=== PATIENT | female | born 1965 | race Caucasian/White ===

== ENCOUNTER 2016-08-13 16:04 | Inpatient (IN) | payer BC ==
--- NOTE | ~2016-08-13 | DS ---
Discharge Summary [facility] [address] [place]. [address] NAME: DEVON LAWSON : 67 STATUS : DIS IN PAT#: [id number] AGE: 51 ADM/REG DATE : 08/13/16 MR#: [id number] REPORT SERV DATE: 09/02/16 DICTATED BY: QUINN ROBBINS DATE: 09/01/16 REPORT STATUS : Draft TRANSCRIBED BY: PAPITO DATE: 09/01/16 Data Collection from hospitalization ADDENDUM CONTENT ARCHITECT: Nirmal Persaud M.D. HOSPITAL COURSE: The patient was seen by Dr. Oneal Guajardo. His impression included febrile illness and sepsis in a renal transplant patient. Her symptoms thus far were most consistent with a gastrointestinal etiology, possibly even bacterial gastroenteritis looking at her white count, procalcitonin, etc. He did not see any other likely sources outside of the gastrointestinal tract. She did have a CT scan that showed some scattered air-fluid levels, of uncertain etiology in her small bowel, but otherwise was unremarkable with no abnormality seen in the transplanted kidney or in the gallbladder. She does have some chronic-appearing cystic lesions in her liver that were felt to be unrelated to this. She was already better on empiric therapy and hydration. Vancomycin and Zosyn were continued for now. We would follow up the blood and stool cultures and make antibiotic changes as indicated. The following day, she seemed to felt better, she had less nausea. The creatinine and calcium levels were decreasing. She was growing E. coli in her blood cultures. Vancomycin had been stopped. Stool cards were provided. IV fluids were decreased. On the , she said she was feeling much better. Stool cultures were negative. She continued to have diarrhea. She remained afebrile. Zosyn was continued for now. She still had some abdominal pain. Creatinine level was 1.03. Electrolyte protocol was in place. CT scan of the abdomen and pelvis without contrast was again performed. On the , she had persistent diarrhea. Her abdominal pain was somewhat better. Creatinine had decreased to 0.89. Antibiotics were continued. On 08/17/2016, she remained afebrile. Her stool cultures were negative. Her CT scan had been negative. She was placed on Cipro. Creatinine was stable at 0.72. She was seen in consultation. She was seen by Dr. Nirmal Sadowitz. The patient has a history of irritable bowel syndrome. Zosyn had been stopped. The patient was on Cipro. We placed the patient on Xifaxan and a probiotic. The patient has had no bright red blood per rectum. On the , she was feeling better. She was afebrile. Her lungs were clear. She had no new complaints. Her diarrhea was improving. Amlodipine was being given. Electrolyte protocol continued. Solu-Cortef was being weaned. CellCept was stopped. Nystatin swish and swallow was being given. Levsin was started as well. On 08/20/2016, she still had some diarrhea. She had no edema. Over the next couple of days, she had no complaints. Her diarrhea was much improved. CellCept was added back. Discharge planning was performed. Stools were more formed and less frequent. On 08/22/2016, she was alert and cooperative. Loose stools were much improved. was added to her regimen. Levsin, probiotic, and Xifaxan were continued. Discharge instructions were given. Due to her improved and stable condition, she was discharged home with the above-stated instructions. Information collected by: Leah Murrell I submit the above information as my discharge summary. Discharge Summary [address] [address] NAME: DEVON LAWSON : 67 STATUS : DIS IN PAT#: [id number] AGE: 51 ADM/REG DATE : 08/13/16 MR#: [id number] REPORT SERV DATE: 09/02/16 DICTATED BY: QUINN ROBBINS DATE: 09/01/16 REPORT STATUS : Draft TRANSCRIBED BY: PAPITO DATE: 09/01/16 TG/PAPITO Quinn Robbins M.D. / [id number] CC: Jose Lancaster M.D. Richard Sadowitz, M.D.
--- NOTE | ~2016-08-13 | CN ---
Consultation Report [facility] [address] [place]. [address] NAME: DEVON LAWSON : 67 STATUS : ADM IN PAT#: [id number] AGE: 50 ADM/REG DATE : 08/13/16 MR#: [id number] REPORT SERV DATE: 08/14/16 DICTATED BY: NICOLE HINOJOSA DATE: 08/14/16 REPORT STATUS : Draft TRANSCRIBED BY: MODEfren DATE: 08/14/16 INFECTIOUS DISEASE CONSULT DATE OF CONSULTATION: REASON FOR REFERRAL: Evaluation and treatment of febrile illness. HISTORY OF PRESENT ILLNESS: The patient is a 50-year-old female with history of hypertension, diabetes mellitus, and endometriosis. She was diagnosed as a child with Wilms tumor and underwent a right nephrectomy and also radiation to the left kidney, and with time, developed worsening renal function to the point of end-stage renal disease as an adult. She was briefly on hemodialysis and then underwent a renal transplant in 04/2014 at [place] from a unrelated donor. She has done well with her transplant without any rejection problems. Since then, she is maintained on low-dose prednisone along with CellCept and Prograf. She was doing well until five days ago when she began to feel ill with general malaise last Thursday evening that grew worse the next morning and was accompanied beginning in the morning with nausea, vomiting, and then later in the day with diarrhea. She was seen in the afternoon at [facility] and was febrile there. It was noted that she had some slight redness around the site of a skin biopsy on her back and so she was started on clindamycin for possible infection with that. She said she took it despite her nausea, but she grew worse and worse. Temperatures were going to 102 to 103. She continued to have intermittent diarrhea, intermittent headaches, though not severe, and she does have a chronic history of headaches. She had no real significant worsening cough. No sore throat. Only mild abdominal pain. No dysuria. No joint pain. No skin lesions or rashes. No lymphadenopathy. She is a [place] of [place] area, has lived in [place] all of her life. She has not traveled outside this area recently and not outside the [place] ever. 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 She lives in [place]. She is single. She lives with her adult child. No small children in the household. She does have four dogs, none of whom are sick and only one is an inside dog. There is an older child in the household with a bearded dragon, but she never has any contact whatsoever with that reptile. She has not been around any other animals. No farm animals. She has not eaten anything that she suspected as being not good or spoiled. She does eat out occasionally including daily sandwiches from restaurants. She has not consumed any unpasteurized dairy products. No other unusual environmental exposures. PAST MEDICAL HISTORY: Otherwise unremarkable. MEDICATIONS: She was started last evening on vancomycin and Zosyn. ALLERGIES: SHE REPORTS AN ALLERGY TO LEVOFLOXACIN AND DOXYCYCLINE. SOCIAL HISTORY: She is single, nonsmoker. No history of alcohol or substance abuse. Work as previously mentioned. Consultation Report [address] [place]. [address] NAME: DEVON LAWSON : 67 STATUS : ADM IN [facility]#: [id number] AGE: 50 ADM/REG DATE : 08/13/16 MR#: [id number] REPORT SERV DATE: 08/14/16 DICTATED BY: NICOLE HINOJOSA DATE: 08/14/16 REPORT STATUS : Draft TRANSCRIBED BY: PAPITO DATE: 08/14/16 FAMILY HISTORY: Noncontributory. PHYSICAL EXAMINATION: GENERAL: This morning, a nontoxic adult female, in no acute distress. She is alert and oriented x3. VITAL SIGNS: Her temperature when she presented yesterday was 98.9; it did go up to 102.1 last evening, it is 97.9 this morning with a pulse of 96, respirations 22, blood pressure 122/63, weight 56 kg. HEENT: Sclerae are clear. There are no oropharyngeal lesions. NECK: Supple without lymphadenopathy or meningeal signs. LUNGS: Clear to auscultation. HEART: Regular rate and rhythm without murmur or gallop. ABDOMEN: Soft. There is some slight tenderness in the mid abdomen without guarding or rebound. Positive bowel sounds are heard and there are no masses or hepatosplenomegaly. Incisions from her transplant are all well healed. EXTREMITIES: Without clubbing, cyanosis, or edema. No swollen, red, or hot joints. No skin lesions or rashes are noted other than where she had the biopsy on her back that appears to be healing and does not appear to be infected. LABORATORIES AT PRESENTATION: Her white blood cell count was 11.5; this morning it is 7.5 with a hematocrit of 25.9, and platelets of 135. 75 segs, 12% bands at presentation, 83 segs and 7% bands this morning. Her BUN and creatinine were 35 and 1.12 at presentation; it is 31 and 0.97 this morning; her baseline, she is at 0.6 to 0.7. Procalcitonin was 7.16 at presentation. Liver function tests within normal limits with the exception of an albumin of 2.3 and an alkaline phosphatase of 154. Her urinalysis was unremarkable. Blood cultures so far are negative. A Clostridium difficile assay was done on her stool and that was negative. Stool cultures pending. IMPRESSION: Febrile illness and sepsis in a renal transplant patient. Her symptoms thus far are most consistent with a gastrointestinal etiology, possibly even a bacterial gastroenteritis, looking at her white count, procalcitonin, etc. I do not see any other likely sources outside of the gastrointestinal tract. She did have a CT scan that showed some scattered air-fluid levels of uncertain etiology in her small bowel, but otherwise was unremarkable with no abnormalities seen in the transplanted kidney or in the gallbladder. She does have some chronic-appearing cystic lesions in her liver that I think are unrelated to this. She is already better on empiric therapy and hydration. RECOMMENDATIONS: 1. Continue the vancomycin and Zosyn for now. 2. We will follow up the stool and blood cultures later today and tomorrow and change antibiotics as indicated if positive results are found there. 3. Finally, I will follow the patient with you. I appreciate very much your consulting on this patient. Consultation Report [facility] [address] [place]. [address] NAME: DEVON LAWSON : 67 STATUS : ADM IN PAT#: [id number] AGE: 50 ADM/REG DATE : 08/13/16 MR#: [id number] REPORT SERV DATE: 08/14/16 DICTATED BY: NICOLE HINOJOSA DATE: 08/14/16 REPORT STATUS : Draft TRANSCRIBED BY: PAPITO DATE: 08/14/16 ALY Nicole Hinojosa M.D. / [id number] CC: Ferny Tapia M.D.
--- NOTE | ~2016-08-13 | HP ---
History And Physical [facility] [id number] [place]. [address] NAME: DEVON ALBRECHT : 67 STATUS : ADM IN [facility]#: [id number] AGE: 50 ADM/REG DATE : 08/13/16 MR#: [id number] REPORT SERV DATE: 08/14/16 DICTATED BY: QUINN ROBBINS DATE: 08/13/16 REPORT STATUS : Draft TRANSCRIBED BY: MODL DATE: 08/13/16 DATE OF ADMISSION: 08/13/2016 INDICATION FOR HOSPITALIZATION: Nausea, vomiting, diarrhea, and fever. HISTORY OF PRESENT ILLNESS: Ms. Albrecht is a 50-year-old female who was followed for donor renal transplant, which was performed at [place] in 04/2014. She received a transplant across [facility]BO blood types with high A2 kidney, six-antigen match, 0% PRAs, CMV negative donor, and CMV positive recipient. There have been no episodes of rejection. Prior to transplant, she received plasmapheresis, Rituxan, and IVIG. Her baseline creatinine has ranged between 0.5 and 0.9, and she has been tolerating prednisone, CellCept, and Prograf as an immunosuppressant regimen. The patient indicates that she recently had a skin biopsy on her back, and there was some redness at the site. She developed fever at home with maximal temperature of 102.3 degrees associated with chills, nausea, vomiting, and diarrhea. She was intermittently able to keep down fluids and states that she took Phenergan to help keep down medications. She has not eaten in five days. She presented with the nausea, vomiting, abdominal pain, and fever. Her lactic acid was 0.7. WBC was 11.5, hemoglobin 10.8, and platelet count 181. Creatinine was 1.12. Sodium 132, bicarb 16, glucose 134, calcium 12.1, procalcitonin was 7.16. She had a urinalysis that revealed 1 wbc, hyaline cast, rare bacteria and leukocyte esterase negative. She indicates on the Thursday prior to this admission, she was evaluated at the emergency room at [facility], no labs were done. They evaluated her back lesion and placed her on Cleocin. She noted diarrhea prior to initiation of Cleocin. She denies any melanotic stools. 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 SOCIAL HISTORY: The patient is single and has an adult son. 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 She does not smoke, drink, or use illicit drugs. FAMILY HISTORY: Brother with lymphoma. Father with kidney stones. Mother with renal cyst and hypertension. No history of end-stage renal disease. Adult son in good health. Marital status, . HOME MEDICATIONS: Protonix, Ambien, Zofran, CellCept, magnesium oxide, prednisone, Tradjenta, pravastatin, Flonase nasal spray, Sensipar, Zyrtec, Lantus insulin, Flexeril, Prograf, Phenergan, Fioricet, and PhosLo. ALLERGIES: NIACIN, DOXYCYCLINE, LEVOFLOXACIN, DILAUDID, REGLAN. History And Physical [address] [address] NAME: DEVON ALBRECHT : 67 STATUS : ADM IN [facility]#: [id number] AGE: 50 ADM/REG DATE : 08/13/16 MR#: [id number] REPORT SERV DATE: 08/14/16 DICTATED BY: QUINN ROBBINS DATE: 08/13/16 REPORT STATUS : Draft TRANSCRIBED BY: PAPITO DATE: 08/13/16 REVIEW OF SYSTEMS: CONSTITUTIONAL: Positive for chills, weakness, fever. HEENT: No sinus drainage. No pharyngitis. No change in visual acuity. PULMONARY: No significant shortness of breath. Minimal cough, nonproductive. CARDIAC: No chest pain. No lower extremity edema. GI: Positive for abdominal pain, nausea, vomiting, diarrhea, decreased appetite. : No dysuria or gross hematuria. MUSCULOSKELETAL: Chronic back pain. INTEGUMENT: No rash or itching. One lesion on back with minimal erythema following biopsy. HEMATOLOGIC: Easy bleeding. IMMUNOLOGIC: Environmental allergies. PSYCH: Normal affect. No hallucinations. PHYSICAL EXAMINATION: VITAL SIGNS: Temp 98.9, respiratory rate 16, pulse 116, blood pressure 162/78. GENERAL: Pleasant female. Conversing appropriately. Breathing nonlabored. HEENT: Eyes, no scleral icterus. Pupils are equal and reactive to light. Extraocular movement intact. Nares patent. No discharge. Throat, no injection. Mucous membranes moist. NECK: No thyromegaly, masses, or bruits. CHEST/LUNGS: Few late crackles at bases. No consolidation. No wheezing. No dullness to percussion. CARDIAC: Tachycardia. No gallop, rub, or murmur. ABDOMEN: Mild tenderness. No guarding. No hepatosplenomegaly. No masses excluding renal allograft which is nontender. BREASTS, PELVIC, RECTAL: Exam not performed. EXTREMITIES: No edema. No calf tenderness. DERMIS: No rash. The skin lesion on her back is minimally inflamed. MUSCULOSKELETAL: No deformity. No joint tenderness. IMPRESSION: 1. Nausea, vomiting, diarrhea, possibly gastroparesis and/or colitis. 2. donor renal transplant in 04/2014 at [place] with six-antigen match kidney. 3. Possible sepsis with probable colitis as source. 4. Hypercalcemia. 5. Acute kidney injury. 6. Hypertension. 7. History of type 2 diabetes mellitus. 8. Diabetic gastroparesis. 9. Anemia. 10.Probable volume depletion. 11.Herniated nucleus pulposus. PLAN: 1. Labs. 2. Cultures. History And Physical [address] [address] NAME: DEVON ALBRECHT : 67 STATUS : ADM IN [facility]#: [id number] AGE: 50 ADM/REG DATE : 08/13/16 MR#: [id number] REPORT SERV DATE: 08/14/16 DICTATED BY: QUINN ROBBINS DATE: 08/13/16 REPORT STATUS : Draft TRANSCRIBED BY: MODL DATE: 08/13/[address] scan of abdomen without contrast. 4. Vancomycin and Zosyn after cultures. 5. Infectious Disease consult. 6. IV fluids. CG/BRIANNAL Quinn Robbins M.D. / [id number] CC: Quinn Robbins M.D.
--- NOTE | ~2016-08-13 | DS ---
Discharge Summary [facility] [address] [place]. [address] NAME: DEVON LAWSON : 67 STATUS : DIS IN PAT#: [id number] AGE: 51 ADM/REG DATE : 08/13/16 MR#: [id number] REPORT SERV DATE: 09/02/16 DICTATED BY: QUINN ROBBINS DATE: 09/01/16 REPORT STATUS : Draft TRANSCRIBED BY: PAPITO DATE: 09/01/16 Data Collection from hospitalization DISCHARGE DIAGNOSES: 1. E. coli sepsis. 2. Type 2 diabetes mellitus. 3. Hypertension. 4. History of renal transplant. 5. Diarrhea. 6. Nausea and vomiting-resolved. 7. End-stage renal disease. 8. Anemia. 9. Diabetic gastroparesis. 10.Hyperparathyroidism. CONSULTATION: Dr. Oneal Guajardo. PROCEDURES: 1. CT scan of the abdomen and pelvis without contrast, 08/13/2016. 2. CT scan of the abdomen and pelvis without contrast, 08/15/2016. DISCHARGE MEDICATIONS: Norvasc 5 mg daily, Fioricet one tablet daily as needed, Zyrtec 10 mg at bedtime, Sensipar 30 mg twice a day, Flexeril 5 mg every six hours as needed, Flonase nasal spray one spray nasally twice a day, Levsin 0.125 mg sublingually before meals and at bedtime, Lantus 12 units subcutaneously at bedtime, Tradjenta 5 mg daily, Mag-Ox 400 mg twice a day, CellCept 1 g twice a day, Zofran 4 mg three times a day as needed, Protonix 40 mg twice a day, Pravachol 10 mg at bedtime, Deltasone 5 mg daily, Phenergan 12.5 mg twice a day as needed, Xifaxan 550 mg every 8 hours-stop 09/01/2016, Florastor 250 mg twice a day, sodium bicarb 2 tablets daily, Prograf 5 mg twice a day, Ambien 5 mg at bedtime, Norvasc 5 mg daily, Fioricet one tablet daily as needed, Zyrtec 10 mg at bedtime, Sensipar 30 mg twice a day, Flexeril 5 mg every six hours as needed, Flonase nasal spray one spray nasally twice a day, Levsin 0.125 mg before meals and at bedtime. CONDITION AT DISCHARGE: Stable. DISPOSITION: The patient was discharged home on a low-cholesterol, 2000-calorie diabetic diet with activities as instructed with no concentrated carbohydrates. She would follow up with Dr. Quinn Robbins 09/08/2016 and would follow up with Dr. Nirmal Persaud as instructed. HOSPITAL COURSE: This is a 50-year-old female who is having fever at home with maximum temperature of 102.3 associated with chills, nausea, vomiting, and diarrhea. She has a history of donor renal transplant in 2014. There had been no episodes of rejection prior to transplant. She had received plasmapheresis, Rituxan, and IVIG. She had been tolerating prednisone, CellCept, and Prograf as an immunosuppressant regimen. She states she recently had a skin biopsy on her back, and there was some redness at the site. She developed a fever at home with maximum temperature of 102.3. She was intermittently able to keep down fluids and said that she took Phenergan to help keep down medications. She said Discharge Summary [address] [address] NAME: DEVON LAWSON : 67 STATUS : DIS IN PAT#: [id number] AGE: 51 ADM/REG DATE : 08/13/16 MR#: [id number] REPORT SERV DATE: 09/02/16 DICTATED BY: QUINN ROBBINS DATE: 09/01/16 REPORT STATUS : Draft TRANSCRIBED BY: MODL DATE: 09/01/16 she had not eaten in five days. Lactic acid was 0.7. White count was 11.5. She was admitted to the hospital at this time for further evaluation and treatment. Upon admission, cultures were obtained. CT scan of the abdomen and pelvis without contrast was performed. IV fluids were started. She was seen by Dr. Oneal Guajardo. His impression included DICTATION ENDS HERE. Information collected by: Leah Murrell I submit the above information as my discharge summary. DILLON/PAPITO Quinn Robbins M.D. / [id number]
[2016-08-13 18:25] LABS: INFLUENZA A SCREEN NEGATIVE (NEGATIVE); INFLUENZA B SCREEN NEGATIVE (NEGATIVE)
[2016-08-13 18:31] LABS: BASOPHILS 0.2 %; BASOPHILS ABSOLUTE 0.02 10/3/uL (0.0-0.16); EOSINOPHILS 0.3 %; EOSINOPHILS ABSOLUTE 0.03 10/3/uL (0.0-0.53); HEMATOCRIT 31.2 % (36.0-48.0); HEMOGLOBIN 10.8 g/dL (12.0-16.0); IMMATURE GRANULOCYTES 6.7 %; IMMATURE GRANULOCYTES ABSOLUTE 0.77 10/3/uL (0.0-0.11); LYMPHOCYTES 8.8 %; LYMPHOCYTES ABSOLUTE 1.01 10/3/uL (0.67-4.30); MEAN CORPUSCULAR HEMOGLOB 29.1 pg (26.0-34.0); MEAN PLATELET VOLUME 11.5 fL (9.2-13.0); MONOCYTES 7.7 %; MONOCYTES ABSOLUTE 0.89 10/3/uL (0.21-1.20); NEUTROPHILS 76.3 %; NEUTROPHILS ABSOLUTE 8.77 10/3/uL (2.02-8.40); RBC DISTRIBUTION WIDTH 13.5 % (12.0-16.0); RED CELL COUNT 3.71 10/6/uL (4.0-5.6)
[2016-08-13 18:32] LABS: ER CBC TAT 0 Hrs 22 Mins; MANUAL DIFF NO %; MEAN CORPUS HGB CONC 34.6 g/dL (32.0-36.0); MEAN CORPUSCULAR VOLUME 84.1 fL (80-100); PLATELET COUNT 181 10/3/uL (150-400); WHITE BLOOD CELLS 11.5 10/3/uL (4.5-10.5)
[2016-08-13 18:37] LABS: INTERNATIONAL NORMAL RATI 1.1 UNITS (-); PARTIAL THROMBO TIME 28.1 SEC (22.5-37.2); PROTIME (NOT ORD) 14.4 SEC (12.0-14.5)
[2016-08-13 18:38] LABS: ALBUMIN 2.9 G/DL (3.5-5.0); ALKALINE PHOSPHATASE 154 U/L (45-117); BUN (BLOOD UREA NITROGEN) 35 MG/DL (6-23); CALCIUM, SERUM 12.1 MG/DL (8.5-10.4); CHEST PAIN PROFILE TAT 0 Hrs 28 Mins; CHLORIDE, SERUM 100 MMOL/L (96-112); CO2 (CARBON DIOXIDE) 16 MMOL/L (24-34); CREATININE 1.12 MG/DL (0.55-1.02); DIRECT BILIRUBIN 0.1 MG/DL (0.0-0.4); GFR AFRICAN AMERICAN 67 ML/MIN (>=60); GFR NON AFRICAN AMERICAN 58 ML/MIN (>=60); GLUCOSE, SERUM 134 MG/DL (60-99); INDIRECT BILIRUBIN(NOT ORDER) 0.3 MG/DL (0.1-0.9); SGOT(AST) 15 U/L (5-40); SGPT(ALT) 26 U/L (5-65); SODIUM, SERUM 132 MMOL/L (135-148); TOTAL BILIRUBIN 0.4 MG/DL (0-1.2); TOTAL PROTEIN 7.4 G/DL (6.0-8.5); TROPONIN I <0.02 NG/ML (<0.05)
[2016-08-13 18:41] LABS: BAND NEUTROPHILS 12 %; ER DIFF TAT 0 Hrs 31 Mins; LYMPHOCYTES 3 %; LYMPHOCYTES ABSOLUTE (CALC) 0.35 10/3/uL (0.67-4.30); MONOCYTES 10 %; MONOCYTES ABSOLUTE (CALC) 1.15 10/3/uL (0.21-1.20); NEUTROPHILS ABSOLUTE (CALC) 10.01 10/3/uL (2.02-8.40); PLATELET ESTIMATE ADQ (ADEQUATE); POIKILOCYTOSIS 1+ (5-10/OIF) (0-5/OIF); SEGMENTED NEUTROPHIL (0) 75 %; TOTAL NUCLEATED CELLS 100; TOXIC GRANULATION SLT
[2016-08-13 19:12] LABS: PROCALCITONIN 7.16 ng/mL (<0.5)
[2016-08-13 20:07] LABS: ASCORBIC ACID (UR NOT ORDER) NEG (NEG); BILIRUBIN, URINE NEGATIVE (NEG); ER URINALYSIS TAT 0 Hrs 11 Mins; KETONE, URINE 20 MG/DL (NEG); LEUKOCYTE ESTERASE(NOT OR NEG (NEG); NITRITE (URINE) NEG (NEG); WBC (NOT ORDERED) (RFLEX) 2 (0-5)
[2016-08-13] MEDS ORDERED: PR12.5 PO (20:13)
[2016-08-13] MEDS ORDERED: ZOFRAN ODT4 MG PO (20:13)
[2016-08-13] MEDS ORDERED: LANTUS SC (20:14)
[2016-08-13] MEDS ORDERED: FIORICET 50-301 EACH PO (20:14)
[2016-08-13] MEDS ORDERED: FLEXERIL5 MG PO (20:14)
[2016-08-13] MEDS ORDERED: PRAV10 PO (20:15)
[2016-08-13] MEDS ORDERED: TRADJENTA5 MG PO (20:15)
[2016-08-13] MEDS ORDERED: MAGOX4 PO (20:15)
[2016-08-13] MEDS ORDERED: ZYRTEC ALLGY10 MG PO (20:15)
[2016-08-13] MEDS ORDERED: FLONASE NAS (20:15)
[2016-08-13] MEDS ORDERED: P5 PO (20:16)
[2016-08-13] MEDS ORDERED: SENSIPAR30 M1 PO (20:16)
[2016-08-13] MEDS ORDERED: PHOSPHA 250 PO (20:16)
[2016-08-13] MEDS ORDERED: PROTONIX PO (20:16)
[2016-08-13] MEDS ORDERED: PROGRAF1 PO (20:16)
[2016-08-13] MEDS ORDERED: CELLCEPT5 PO (20:17)
[2016-08-13] MEDS ORDERED: AMB10 PO (20:17)
[2016-08-13] MEDS ORDERED: CLINDA150 PO (20:17)
[2016-08-14 03:47] LABS: MEAN CORPUS HGB CONC 34.7 g/dL (32.0-36.0); MEAN CORPUSCULAR HEMOGLOB 29.6 pg (26.0-34.0); MEAN CORPUSCULAR VOLUME 85.2 fL (80-100); PLATELET COUNT 135 10/3/uL (150-400); RBC DISTRIBUTION WIDTH 13.3 % (12.0-16.0); RED CELL COUNT 3.04 10/6/uL (4.0-5.6); WHITE BLOOD CELLS 7.5 10/3/uL (4.5-10.5)
[2016-08-14 03:48] LABS: HEMATOCRIT 25.9 % (36.0-48.0); MANUAL DIFF YES %
[2016-08-14 04:07] LABS: CHLORIDE, SERUM 111 MMOL/L (96-112); CREATININE 0.97 MG/DL (0.55-1.02); GFR AFRICAN AMERICAN 79 ML/MIN (>=60); GFR NON AFRICAN AMERICAN 69 ML/MIN (>=60); GLUCOSE, SERUM 147 MG/DL (60-99); PHOSPHORUS, SERUM 2.2 MG/DL (2.5-4.5); POTASSIUM, SERUM 4.2 MMOL/L (3.5-5.3)
[2016-08-14 04:10] LABS: ALBUMIN 2.3 G/DL (3.5-5.0); BAND NEUTROPHILS 7 %; BUN (BLOOD UREA NITROGEN) 31 MG/DL (6-23); CALCIUM, SERUM 10.7 MG/DL (8.5-10.4); CO2 (CARBON DIOXIDE) 15 MMOL/L (24-34); LYMPHOCYTES 3 %; LYMPHOCYTES ABSOLUTE (CALC) 0.23 10/3/uL (0.67-4.30); MONOCYTES 7 %; MONOCYTES ABSOLUTE (CALC) 0.53 10/3/uL (0.21-1.20); NEUTROPHILS ABSOLUTE (CALC) 6.75 10/3/uL (2.02-8.40); SEGMENTED NEUTROPHIL (0) 83 %; SODIUM, SERUM 139 MMOL/L (135-148); TOTAL NUCLEATED CELLS 100
[2016-08-14 04:11] LABS: PLATELET ESTIMATE ADQ (ADEQUATE); POIKILOCYTOSIS 1+ (5-10/OIF) (0-5/OIF); RBC MORPHOLOGY ABN (NORMAL)
[2016-08-14 06:26] LABS: PROCALCITONIN 6.16 ng/mL (<0.5)
[2016-08-15 07:37] LABS: ALBUMIN 1.9 G/DL (3.5-5.0); CHLORIDE, SERUM 112 MMOL/L (96-112); CREATININE 1.03 MG/DL (0.55-1.02); GFR AFRICAN AMERICAN 74 ML/MIN (>=60); GFR NON AFRICAN AMERICAN 64 ML/MIN (>=60); SODIUM, SERUM 143 MMOL/L (135-148)
[2016-08-15 07:38] LABS: BUN (BLOOD UREA NITROGEN) 21 MG/DL (6-23); CO2 (CARBON DIOXIDE) 21 MMOL/L (24-34); GLUCOSE, SERUM 207 MG/DL (60-99); PHOSPHORUS, SERUM 1.1 MG/DL (2.5-4.5); POTASSIUM, SERUM 2.8 MMOL/L (3.5-5.3)
[2016-08-15 07:43] LABS: HEMOGLOBIN 7.9 g/dL (12.0-16.0); MEAN CORPUSCULAR HEMOGLOB 31.9 pg (26.0-34.0); MEAN CORPUSCULAR VOLUME 83.5 fL (80-100); MEAN PLATELET VOLUME 12.8 fL (9.2-13.0); RBC DISTRIBUTION WIDTH 14.3 % (12.0-16.0); RED CELL COUNT 2.48 10/6/uL (4.0-5.6); WHITE BLOOD CELLS 7.2 10/3/uL (4.5-10.5)
[2016-08-15 07:46] LABS: MEAN CORPUS HGB CONC 38.2 g/dL (32.0-36.0); PLATELET COUNT 428 10/3/uL (150-400)
[2016-08-15 07:48] LABS: MANUAL DIFF YES %
[2016-08-15 07:53] LABS: BAND NEUTROPHILS 1 %; LYMPHOCYTES 21 %; LYMPHOCYTES ABSOLUTE (CALC) 1.51 10/3/uL (0.67-4.30); MONOCYTES 14 %; MONOCYTES ABSOLUTE (CALC) 1.01 10/3/uL (0.21-1.20); NEUTROPHILS ABSOLUTE (CALC) 4.68 10/3/uL (2.02-8.40); PLATELET ESTIMATE SLT INC (ADEQUATE); ROULEAUX FORMATION 2+; SEGMENTED NEUTROPHIL (0) 64 %; TOTAL NUCLEATED CELLS 100
[2016-08-15 07:57] LABS: PROCALCITONIN 3.69 ng/mL (<0.5)
[2016-08-16 06:26] LABS: HEMOGLOBIN 7.5 g/dL (12.0-16.0); MEAN CORPUSCULAR HEMOGLOB 28.8 pg (26.0-34.0); MEAN CORPUSCULAR VOLUME 84.6 fL (80-100); MEAN PLATELET VOLUME 11.6 fL (9.2-13.0); RBC DISTRIBUTION WIDTH 13.8 % (12.0-16.0); WHITE BLOOD CELLS 5.9 10/3/uL (4.5-10.5)
[2016-08-16 06:29] LABS: MANUAL DIFF YES %; MEAN CORPUS HGB CONC 34.1 g/dL (32.0-36.0); PLATELET COUNT 152 10/3/uL (150-400)
[2016-08-16 06:45] LABS: ALBUMIN 1.9 G/DL (3.5-5.0); BUN (BLOOD UREA NITROGEN) 18 MG/DL (6-23); CALCIUM, SERUM 10.9 MG/DL (8.5-10.4); CHLORIDE, SERUM 112 MMOL/L (96-112); CO2 (CARBON DIOXIDE) 23 MMOL/L (24-34); CREATININE 0.89 MG/DL (0.55-1.02); GFR AFRICAN AMERICAN 88 ML/MIN (>=60); GFR NON AFRICAN AMERICAN 76 ML/MIN (>=60); GLUCOSE, SERUM 178 MG/DL (60-99); SODIUM, SERUM 144 MMOL/L (135-148)
[2016-08-16 06:47] LABS: PHOSPHORUS, SERUM 1.9 MG/DL (2.5-4.5)
[2016-08-16 06:50] LABS: BAND NEUTROPHILS 6 %; BASOPHILS 1 %; BASOPHILS ABSOLUTE (CALC) 0.06 10/3/uL (0.0-0.16); EOSINOPHILS 3 %; EOSINOPHILS ABSOLUTE (CALC) 0.18 10/3/uL (0.0-0.53); LYMPHOCYTES 11 %; LYMPHOCYTES ABSOLUTE (CALC) 0.65 10/3/uL (0.67-4.30); MONOCYTES 18 %; MONOCYTES ABSOLUTE (CALC) 1.06 10/3/uL (0.21-1.20); NEUTROPHILS ABSOLUTE (CALC) 3.95 10/3/uL (2.02-8.40); SEGMENTED NEUTROPHIL (0) 61 %; TOTAL NUCLEATED CELLS 100
[2016-08-16 06:51] LABS: PLATELET ESTIMATE ADQ (ADEQUATE); POLYCHROMASIA 1+ (2-5/OIF) (0-1/OIF); TARGET CELLS OCC (1-2/OIF) (0-1/OIF); TEARDROP SHAPED RBCS OCC (0-2/OIF); TOXIC GRANULATION SLT
[2016-08-17 07:37] LABS: HEMATOCRIT 22.1 % (36.0-48.0); HEMOGLOBIN 7.9 g/dL (12.0-16.0); MEAN CORPUS HGB CONC 35.7 g/dL (32.0-36.0); MEAN CORPUSCULAR HEMOGLOB 29.5 pg (26.0-34.0); MEAN CORPUSCULAR VOLUME 82.5 fL (80-100); MEAN PLATELET VOLUME 10.8 fL (9.2-13.0); PLATELET COUNT 180 10/3/uL (150-400); RED CELL COUNT 2.68 10/6/uL (4.0-5.6); WHITE BLOOD CELLS 7.3 10/3/uL (4.5-10.5)
[2016-08-17 07:39] LABS: MANUAL DIFF YES %
[2016-08-17 07:55] LABS: CALCIUM, SERUM 10.4 MG/DL (8.5-10.4); CHLORIDE, SERUM 111 MMOL/L (96-112); CREATININE 0.85 MG/DL (0.55-1.02); GFR AFRICAN AMERICAN 93 ML/MIN (>=60); GFR NON AFRICAN AMERICAN 80 ML/MIN (>=60); PHOSPHORUS, SERUM 1.5 MG/DL (2.5-4.5); SODIUM, SERUM 146 MMOL/L (135-148)
[2016-08-17 07:56] LABS: BUN (BLOOD UREA NITROGEN) 11 MG/DL (6-23); CO2 (CARBON DIOXIDE) 28 MMOL/L (24-34); GLUCOSE, SERUM 92 MG/DL (60-99); POTASSIUM, SERUM 2.6 MMOL/L (3.5-5.3)
[2016-08-17 08:59] LABS: BAND NEUTROPHILS 19 %; EOSINOPHILS 2 %; EOSINOPHILS ABSOLUTE (CALC) 0.15 10/3/uL (0.0-0.53); IMMATURE GRANS ABSOLUTE (CALC) 0.15 10/3/uL (0.0-0.11); LYMPHOCYTES 9 %; LYMPHOCYTES ABSOLUTE (CALC) 0.66 10/3/uL (0.67-4.30); METAMYELOCYTES 2 %; MONOCYTES 17 %; MONOCYTES ABSOLUTE (CALC) 1.24 10/3/uL (0.21-1.20); NEUTROPHILS ABSOLUTE (CALC) 5.11 10/3/uL (2.02-8.40); PLATELET ESTIMATE ADQ (ADEQUATE); SEGMENTED NEUTROPHIL (0) 51 %; TOTAL NUCLEATED CELLS 100
[2016-08-17 09:00] LABS: ELLIPTOCYTES 1+ (3-10/OIF) (0-2/OIF); HELMET CELLS OCC (0-2/OIF); TEARDROP SHAPED RBCS OCC (0-2/OIF); TOXIC GRANULATION 1+; VACUOLATED NEUTROPHILES OCC
[2016-08-18 08:43] LABS: BUN (BLOOD UREA NITROGEN) 10 MG/DL (6-23); CALCIUM, SERUM 9.9 MG/DL (8.5-10.4); CHLORIDE, SERUM 112 MMOL/L (96-112); CO2 (CARBON DIOXIDE) 26 MMOL/L (24-34); CREATININE 0.72 MG/DL (0.55-1.02); GFR AFRICAN AMERICAN 114 ML/MIN (>=60); GFR NON AFRICAN AMERICAN 98 ML/MIN (>=60); GLUCOSE, SERUM 188 MG/DL (60-99); POTASSIUM, SERUM 3.5 MMOL/L (3.5-5.3); SODIUM, SERUM 145 MMOL/L (135-148)
[2016-08-19 04:46] LABS: HEMATOCRIT 21.9 % (36.0-48.0); HEMOGLOBIN 7.5 g/dL (12.0-16.0); MEAN CORPUS HGB CONC 34.2 g/dL (32.0-36.0); MEAN CORPUSCULAR HEMOGLOB 29.2 pg (26.0-34.0); MEAN PLATELET VOLUME 11.5 fL (9.2-13.0); PLATELET COUNT 188 10/3/uL (150-400); RBC DISTRIBUTION WIDTH 14.2 % (12.0-16.0); RED CELL COUNT 2.57 10/6/uL (4.0-5.6); WHITE BLOOD CELLS 6.7 10/3/uL (4.5-10.5)
[2016-08-19 04:51] LABS: MANUAL DIFF YES %; MEAN CORPUSCULAR VOLUME 85.2 fL (80-100)
[2016-08-19 05:00] LABS: ALBUMIN 2.1 G/DL (3.5-5.0); BUN (BLOOD UREA NITROGEN) 8 MG/DL (6-23); CALCIUM, SERUM 9.5 MG/DL (8.5-10.4); CHLORIDE, SERUM 113 MMOL/L (96-112); CO2 (CARBON DIOXIDE) 25 MMOL/L (24-34); CREATININE 0.68 MG/DL (0.55-1.02); GFR AFRICAN AMERICAN 119 ML/MIN (>=60); GFR NON AFRICAN AMERICAN 103 ML/MIN (>=60); GLUCOSE, SERUM 197 MG/DL (60-99); PHOSPHORUS, SERUM 1.6 MG/DL (2.5-4.5); POTASSIUM, SERUM 3.4 MMOL/L (3.5-5.3); SODIUM, SERUM 146 MMOL/L (135-148)
[2016-08-19 05:54] LABS: BAND NEUTROPHILS 12 %; IMMATURE GRANS ABSOLUTE (CALC) 0.27 10/3/uL (0.0-0.11); LYMPHOCYTES 10 %; LYMPHOCYTES ABSOLUTE (CALC) 0.67 10/3/uL (0.67-4.30); METAMYELOCYTES 4 %; MONOCYTES 15 %; MONOCYTES ABSOLUTE (CALC) 1.01 10/3/uL (0.21-1.20); NEUTROPHILS ABSOLUTE (CALC) 4.76 10/3/uL (2.02-8.40); PLATELET ESTIMATE ADQ (ADEQUATE); SEGMENTED NEUTROPHIL (0) 59 %; TOTAL NUCLEATED CELLS 100
[2016-08-19 05:55] LABS: HYPOCHROMIA 1+ (3-10/OIF) (0-2/OIF); MICROCYTES 1+ (5-10/OIF) (0-5/OIF)
[2016-08-20 06:19] LABS: ALBUMIN 2.2 G/DL (3.5-5.0); BUN (BLOOD UREA NITROGEN) 8 MG/DL (6-23); CALCIUM, SERUM 9.4 MG/DL (8.5-10.4); CHLORIDE, SERUM 112 MMOL/L (96-112); CO2 (CARBON DIOXIDE) 23 MMOL/L (24-34); CREATININE 0.79 MG/DL (0.55-1.02); GFR AFRICAN AMERICAN 102 ML/MIN (>=60); GFR NON AFRICAN AMERICAN 88 ML/MIN (>=60); PHOSPHORUS, SERUM 1.7 MG/DL (2.5-4.5); SODIUM, SERUM 144 MMOL/L (135-148)
[2016-08-20 06:22] LABS: POTASSIUM, SERUM 2.9 MMOL/L (3.5-5.3)
[2016-08-20 06:23] LABS: GLUCOSE, SERUM 149 MG/DL (60-99)
[2016-08-20 07:13] LABS: HEMOGLOBIN 8.2 g/dL (12.0-16.0); MEAN CORPUS HGB CONC 33.9 g/dL (32.0-36.0); MEAN CORPUSCULAR HEMOGLOB 28.9 pg (26.0-34.0); MEAN CORPUSCULAR VOLUME 85.2 fL (80-100); MEAN PLATELET VOLUME 10.9 fL (9.2-13.0); RBC DISTRIBUTION WIDTH 14.1 % (12.0-16.0); RED CELL COUNT 2.84 10/6/uL (4.0-5.6)
[2016-08-20 07:15] LABS: HEMATOCRIT 24.2 % (36.0-48.0); MANUAL DIFF YES %; PLATELET COUNT 249 10/3/uL (150-400); WHITE BLOOD CELLS 9.6 10/3/uL (4.5-10.5)
[2016-08-20 08:06] LABS: BAND NEUTROPHILS 2 %; EOSINOPHILS 2 %; EOSINOPHILS ABSOLUTE (CALC) 0.19 10/3/uL (0.0-0.53); LYMPHOCYTES 13 %; LYMPHOCYTES ABSOLUTE (CALC) 1.25 10/3/uL (0.67-4.30); MONOCYTES 12 %; MONOCYTES ABSOLUTE (CALC) 1.15 10/3/uL (0.21-1.20); NEUTROPHILS ABSOLUTE (CALC) 7.01 10/3/uL (2.02-8.40); PLATELET ESTIMATE ADQ (ADEQUATE); RBC MORPHOLOGY NORM (NORMAL); SEGMENTED NEUTROPHIL (0) 71 %; TOTAL NUCLEATED CELLS 100
[2016-08-20 10:08] LABS: PROCALCITONIN 0.07 ng/mL (<0.5)
[2016-08-21 06:08] LABS: HEMATOCRIT 23.3 % (36.0-48.0); HEMOGLOBIN 7.9 g/dL (12.0-16.0); MEAN CORPUS HGB CONC 33.9 g/dL (32.0-36.0); MEAN CORPUSCULAR HEMOGLOB 28.8 pg (26.0-34.0); MEAN PLATELET VOLUME 10.7 fL (9.2-13.0); PLATELET COUNT 244 10/3/uL (150-400); RBC DISTRIBUTION WIDTH 14.4 % (12.0-16.0); RED CELL COUNT 2.74 10/6/uL (4.0-5.6); WHITE BLOOD CELLS 9.9 10/3/uL (4.5-10.5)
[2016-08-21 06:10] LABS: MANUAL DIFF YES %
[2016-08-21 06:11] LABS: ALBUMIN 2.3 G/DL (3.5-5.0); BUN (BLOOD UREA NITROGEN) 7 MG/DL (6-23); CALCIUM, SERUM 9.6 MG/DL (8.5-10.4); CHLORIDE, SERUM 114 MMOL/L (96-112); CO2 (CARBON DIOXIDE) 22 MMOL/L (24-34); GFR AFRICAN AMERICAN 100 ML/MIN (>=60); GFR NON AFRICAN AMERICAN 87 ML/MIN (>=60); GLUCOSE, SERUM 117 MG/DL (60-99); PHOSPHORUS, SERUM 2.4 MG/DL (2.5-4.5); POTASSIUM, SERUM 3.2 MMOL/L (3.5-5.3); SODIUM, SERUM 147 MMOL/L (135-148)
[2016-08-21 06:31] LABS: BAND NEUTROPHILS 7 %; EOSINOPHILS 1 %; LYMPHOCYTES 14 %; LYMPHOCYTES ABSOLUTE (CALC) 1.39 10/3/uL (0.67-4.30); METAMYELOCYTES 1 %; MONOCYTES 9 %; MONOCYTES ABSOLUTE (CALC) 0.89 10/3/uL (0.21-1.20); NEUTROPHILS ABSOLUTE (CALC) 7.43 10/3/uL (2.02-8.40); PLATELET ESTIMATE ADQ (ADEQUATE); SEGMENTED NEUTROPHIL (0) 68 %; TOTAL NUCLEATED CELLS 100
[2016-08-21 06:32] LABS: OVALOCYTES 1+ (3-10/OIF) (0-2/OIF); POIKILOCYTOSIS 1+ (5-10/OIF) (0-5/OIF); TOXIC GRANULATION 1+
[2016-08-22 06:22] LABS: ALBUMIN 2.3 G/DL (3.5-5.0); BUN (BLOOD UREA NITROGEN) 8 MG/DL (6-23); CHLORIDE, SERUM 114 MMOL/L (96-112); CO2 (CARBON DIOXIDE) 22 MMOL/L (24-34); CREATININE 0.93 MG/DL (0.55-1.02); GFR AFRICAN AMERICAN 84 ML/MIN (>=60); GFR NON AFRICAN AMERICAN 72 ML/MIN (>=60); GLUCOSE, SERUM 132 MG/DL (60-99); PHOSPHORUS, SERUM 2.5 MG/DL (2.5-4.5); POTASSIUM, SERUM 3.9 MMOL/L (3.5-5.3); SODIUM, SERUM 145 MMOL/L (135-148)
[2016-08-22] MEDS ORDERED: PR12.5 PO ×2 (11:45→16:13)
[2016-08-22] MEDS ORDERED: PROTONIX PO ×2 (11:45→16:13)
[2016-08-22] MEDS ORDERED: FLORASTOR250 MG PO ×2 (16:09→16:29)
[2016-08-22] MEDS ORDERED: XIFAXAN550 MG PO (16:11)
[2016-08-22] MEDS ORDERED: NORV25 PO (16:12)
[2016-08-22] MEDS ORDERED: SODBICAR10 PO (16:12)
[2016-08-22] MEDS ORDERED: FLEX PO (16:13)
[2016-08-22] MEDS ORDERED: LEVSINTAB SL (16:24)
[2016-10-24] MEDS ORDERED: NORV25 PO (02:08)
[2016-10-24] MEDS ORDERED: TRADJENTA5 MG PO (02:09)
[2016-10-24] MEDS ORDERED: FLORASTOR250 MG PO (02:09)
[2016-10-24] MEDS ORDERED: LEVSINTAB PO/SL (02:09)
[2016-10-24] MEDS ORDERED: FIORICET 50-301 EACH PO (02:10)
[2016-10-24] MEDS ORDERED: PHOSPHA 250 PO (02:10)
[2016-10-24] MEDS ORDERED: FLEX PO (02:11)
[2016-10-24] MEDS ORDERED: SODBICAR10 PO (02:12)
[2016-10-24] MEDS ORDERED: PR12.5 PO (02:12)
[2016-10-24] MEDS ORDERED: PRAV10 PO (02:13)
[2016-10-24] MEDS ORDERED: CELLCEPT5 PO (02:13)
[2016-10-24] MEDS ORDERED: P5 PO (02:13)
[2016-10-24] MEDS ORDERED: SENSIPAR30 M1 PO (02:14)
[2016-10-24] MEDS ORDERED: AMB10 PO (02:15)
[2016-10-24] MEDS ORDERED: PROGRAF1 PO (02:15)
[2016-10-24] MEDS ORDERED: LANTUSCART SC (02:16)
[2016-10-24] MEDS ORDERED: FLONASE NAS (02:17)
[2016-10-24] MEDS ORDERED: ZYRTEC ALLGY10 MG PO (02:17)
[2016-10-24] MEDS ORDERED: NOVOPEN SC (02:17)
[2016-10-24] MEDS ORDERED: CEFAZ1 IV (02:20)
[2016-10-24] MEDS ORDERED: MAGOX4 PO (02:20)
[2016-10-24] MEDS ORDERED: PROTONIX PO (02:21)
[2016-10-30] MEDS ORDERED: OXYCOD PO (12:18)
[2016-10-30] MEDS ORDERED: PROGRAF5 PO (12:20)
[2016-10-30] MEDS ORDERED: ELIQUIS 5 MG TAB5 MG PO (12:24)
== END 2016-08-22 17:46 | disposition home or self-care (01) | DRG 872 ==
LOC: ER 16:04 → 2SO 21:36
PROVIDERS: Emergency Medicine; Internal Medicine Nephrology; Nurse Practitioner; Registered Nurse
DX: A41.51 Sepsis due to Escherichia coli [E. coli] (principal); N17.9 Acute kidney failure, unspecified; E11.22 Type 2 diabetes mellitus with diabetic chronic kidney disease; K31.84 Gastroparesis; E11.43 Type 2 diabetes mellitus with diabetic autonomic (poly)neuropathy; Z94.0 Kidney transplant status; E83.42 Hypomagnesemia; A04.9 Bacterial intestinal infection, unspecified; E83.52 Hypercalcemia; D64.9 Anemia, unspecified; E86.9 Volume depletion, unspecified; K76.9 Liver disease, unspecified; E86.0 Dehydration; Z79.4 Long term (current) use of insulin; N80.9 Endometriosis, unspecified; E83.39 Other disorders of phosphorus metabolism; I10 Essential (primary) hypertension
CPT/HCPCS: 71010; 74176; 80048; 80069; 80076; 80202; 81001; 82330; 82533; 82962; 83605; 83735; 84132; 84145; 84484; 85025; 85610; 85730; 87040; 87045; 87046; 87046-59; 87077; 87150; 87186; 87493; 87493-59; 87804; 87899; 87899-59; 89055; 99285; A9270-GY; C9113; J0744; J1720; J2405; J2543; J2550; J3370; J3475; J7507; J7599

== ENCOUNTER 2016-10-10 14:19 | Inpatient (IN) | payer BC ==
--- NOTE | ~2016-10-10 | HP ---
History And Physical [place] [id number] [facility] [place]. [address] NAME: DEVON ALBRECHT : 67 STATUS : ADM IN [facility]#: [id number] AGE: 51 ADM/REG DATE : 10/10/16 MR#: [id number] REPORT SERV DATE: 10/11/16 DICTATED BY: QUINN ROBBINS DATE: 10/10/16 REPORT STATUS : Draft TRANSCRIBED BY: MODL DATE: 10/10/16 DATE OF ADMISSION: 10/10/2016 INDICATION FOR ADMISSION: Fever, renal transplant. HISTORY OF PRESENT ILLNESS: Ms. Albrecht is a 51-year-old female who has followed for donor renal transplant, which was performed in 04/2014 at [place]. Kidney was a six-antigen match. She was transplanted across blood groups as she was a high type A2. She recently was hospitalized in 07/2016 with colitis and had E. coli sepsis. She was treated with Xifaxan and actually received a 2-week course which was subsequently repeated in the outpatient setting when she was followed up in the office. At that time, her blood pressure was somewhat low when her antihypertensives were also reduced. She stabilized for a short period of time and returned to work and then reported fever and dysuria as an outpatient. Urine culture and sensitivity was obtained, but results are not available. She was treated with one week of Keflex and her symptoms resolved. She has had no antibiotics since 10/03/2016. She now reports for the past three days she has had increasing recurrent fever initially starting out in 99 to 101 range, but last night it cynthia to 103 with associated nausea. Labs at this time reveal a procalcitonin of 7.07, 18 wbc's with bacteria on her UA, WBC count was 12.9, and her creatinine was 0.99. PAST MEDICAL HISTORY: Recent colitis with E. coli sepsis, donor renal transplant in 04/2014 at [place], six-antigen match kidney, prior Wilms tumor requiring right nephrectomy and radiation to the left kidney as a child, subsequent obstruction of left kidney due to endometriosis reaching end-stage disease. She was transiently on home hemodialysis prior to her transplant. Other medical problems include herniated nucleus pulposus, remote hysterectomy, type 2 diabetes mellitus, anemia, diabetic gastroparesis, hypertension, and hyperparathyroidism. SOCIAL HISTORY: The patient is single/, has one adult son. 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 She has never smoked. She does not drink and has used no illicit drugs. FAMILY HISTORY: Brother with lymphoma. Father with kidney stones. Mother with renal cyst and hypertension. No history of end-stage renal disease. Adult son is in good health. HOME MEDICATIONS: Protonix, Ambien, Zofran, CellCept, magnesium oxide, prednisone, Tradjenta, pravastatin, Flonase nasal spray, Sensipar, Zyrtec, Lantus insulin, Flexeril, Prograf, Phenergan, Fioricet, and PhosLo. ALLERGIES: NIACIN, DOXYCYCLINE, DILAUDID, REGLAN, AND LEVOFLOXACIN. REVIEW OF SYSTEMS: GENERAL: Positive for fever, chills, weakness with recent fall. HEENT: No sinus drainage. No pharyngitis. No change in visual acuity. PULMONARY: Denies shortness of breath. Has had minimal nonproductive cough. CARDIAC: No chest pain. No lower extremity edema. GI: Some mild abdominal pain. Nausea with no vomiting and recent loose stools. History And Physical [address] [address] NAME: DEVON ALBRECHT : 67 STATUS : ADM IN [facility]#: [id number] AGE: 51 ADM/REG DATE : 10/10/16 MR#: [id number] REPORT SERV DATE: 10/11/16 DICTATED BY: QUINN ROBBINS DATE: 10/10/16 REPORT STATUS : Draft TRANSCRIBED BY: PAPITO DATE: 10/10/16 : Recently treated for UTI. Currently, no dysuria or gross hematuria. MUSCULOSKELETAL: Chronic back pain. INTEGUMENT: No rash or itching. Does have some bruising over left upper extremity and right lower extremity. HEMATOLOGIC: Easy bleeding. IMMUNOLOGIC: Environmental allergies. PSYCH: Normal affect. No hallucinations. PHYSICAL EXAMINATION: GENERAL: Pleasant female, alert, cooperative, accompanied by son. VITAL SIGNS: Blood pressure 168/78, temp 102.8, pulse 114, respiratory rate 21. HEENT: Eyes, no scleral icterus. Pupils equal, reactive to light. Extraocular movement intact. Nares patent. No discharge. Throat, no injection. Mucous membranes moist. NECK: No thyromegaly, masses, bruits. CHEST/LUNGS: Few late crackles posteriorly. No friction rub. CARDIAC: Regular tachycardia. No murmur or gallop. ABDOMEN: Some mild right lower quadrant discomfort without rebound. No allograft tenderness. Bowel sounds normoactive. No hepatosplenomegaly. BREAST, PELVIC, RECTAL: Not performed. EXTREMITIES: No edema. No calf tenderness. There is bruising on left upper extremity. MUSCULOSKELETAL: No deformity. No joint effusions. NEUROLOGIC: Cranial nerves intact. No lateralizing weakness. IMPRESSION: 1. Fever, probable sepsis. 2. Possible urinary tract infection. 3. donor renal transplant. [place] in April 2014. 4. History of Wilms tumor with right nephrectomy and left kidney radiation as child. 5. Obstructive nephropathy from endometriosis leading to end-stage renal disease, with transient home hemo prior to renal transplant. 6. Herniated nucleus pulposus. 7. Recent colitis with Escherichia coli sepsis in July 2016. 8. Type 2 diabetes mellitus. 9. Hypertension. 10.Remote hysterectomy. 11.Hyperparathyroidism with history of hypercalcemia. PLAN: 1. Lab cultures. 2. ID consult. 3. Antibiotics after discussion with Infectious Disease. 4. Fluids. 5. Antiemetics. 6. CT scan. History And Physical [address] [address] NAME: DEVON ALBRECHT : 67 STATUS : ADM IN [facility]#: [id number] AGE: 51 ADM/REG DATE : 10/10/16 MR#: [id number] REPORT SERV DATE: 10/11/16 DICTATED BY: QUINN ROBBINS DATE: 10/10/16 REPORT STATUS : Draft TRANSCRIBED BY: PAPITO DATE: 10/10/16 CG/PAPITO Quinn Robbins M.D. / [id number] CC: Quinn Robbins M.D.
--- NOTE | ~2016-10-10 | CN ---
Consultation Report [facility] [address] [place]. [address] NAME: DEVON LAWSON : 67 STATUS : ADM IN PAT#: [id number] AGE: 51 ADM/REG DATE : 10/10/16 MR#: [id number] REPORT SERV DATE: 10/11/16 DICTATED BY: GRZEGORZ BRANTLEY DATE: 10/11/16 REPORT STATUS : Draft TRANSCRIBED BY: MODL DATE: 10/11/16 INFECTIOUS DISEASE CONSULTATION DATE OF CONSULTATION: 10/11/2016 REASON FOR CONSULTATION: Sepsis. HISTORY OF PRESENT ILLNESS: This is a 51-year-old female, with a past medical history notable for a donor 6 antigen match renal transplant in April 2014, secondary to renal failure from previous right nephrectomy from a Wilms tumor, with radiation also to her left kidney as a child, and subsequent obstruction of the left kidney due to endometriosis. She was admitted to the hospital in mid July of this past year with a febrile illness which did include fairly prominent GI symptoms with nausea, vomiting, and some diarrhea. Her admission blood cultures showed one bottle positive for E coli. She underwent CT scans of her abdomen and pelvis without IV contrast on 08/13/2016 and 08/14/2016, which showed no obvious source of this infection. She did have a polycystic changes in her left kidney. Her urinalysis on admission was negative. She received about nine days of antibiotics with Zosyn and Cipro. The patient was also evaluated by GI and was discharged on Xifaxan through 09/01/2016, apparently thought to have a component of irritable bowel symptoms. The patient states that after she finished the Xifaxan, she continued to feel poorly with weakness, and then started getting fevers again, and really has had episodic fevers for over a month now. Sometimes, she says this is gone as high as 103 or higher and she has had associated chills. She was restarted on the Xifaxan, but the patient states that she does not really feel like that two week course helped a lot. She then did develop some mild dysuria at the end of her stream and was prescribed Keflex on 09/26/2016, a seven-day course. After about three days on the Keflex, she says she did feel better, but once that was stopped over the past week, she has again had severe shaking chills, fevers, and also some nausea, and vomiting. Over the last day or two she has also developed some mild diarrhea, but denies significant abdominal pain. She did fall on the morning of 10/09/2016, at home and hit her left face, arm, and ribs, and has some pain from that. All these symptoms brought her into the emergency department yesterday, where she had a fever as high as 103.1, and had a white blood cell count of 12.9, and procalcitonin of 7.07. Urinalysis showed small leukocyte esterase, 18 white blood cells. Urine and blood cultures were obtained. I discussed the case with Dr. Tapia and she was placed on vancomycin, aztreonam, and Flagyl. CT scan of the chest, abdomen, and pelvis was ordered, but has not yet been done. Just as I finished seen her this morning, one of her admission blood cultures has returned positive for gram- negative adama. The patient denies any blood in her stool. She has not been on antibiotics since finishing the Keflex on 10/03/2016. PAST MEDICAL HISTORY: In addition to the above is notable for diabetes, with gastroparesis, herniated nucleus polyposis, hysterectomy, hyperparathyroidism, and hypertension. ALLERGIES: LEVAQUIN IN THE PAST CAUSED SOME TENDON DISCOMFORT, BUT SHE TOLERATED THE CIPRO, AND DOXYCYCLINE CAUSES NAUSEA. SHE ALSO CANNOT TAKE REGLAN, NIACIN, OR DILAUDID. Consultation Report [address] [place]. [address] NAME: DEVON LAWSON : 67 STATUS : ADM IN [facility]#: [id number] AGE: 51 ADM/REG DATE : 10/10/16 MR#: [id number] REPORT SERV DATE: 10/11/16 DICTATED BY: GRZEGORZ BRANTLEY DATE: 10/11/16 REPORT STATUS : Draft TRANSCRIBED BY: PAPITO DATE: 10/11/16 OUTPATIENT MEDICATIONS: Norvasc, Sensipar, Flexeril, Levsin, insulin, Tradjenta, magnesium oxide, CellCept 1 g p.o. b.i.d., p.r.n. Zofran, Protonix, Phospha, pravastatin, prednisone 5 mg daily, p.r.n. Phenergan, Florastor and Prograf 6 mg p.o. b.i.d. SOCIAL HISTORY: She is a . 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 Nonsmoker and nondrinker. There are some pet dogs. No recent pertinent travel history and she has lived in the [facility] all her life. No known exposure to tuberculosis and she has had negative PPDs. FAMILY HISTORY: Brother with lymphoma. Father with kidney stones. Mother with renal cyst and hypertension. REVIEW OF SYSTEMS: Denies any significant headache. Has had some sores, some fever, blister like lesions on her lips for the past couple of days. No difficulty swallowing or pain with swallowing. Denies any cough, or chest pain, or shortness of breath. No genitourinary symptoms at present. No pain in the right lower quadrant where her transplant kidney is. Denies any blood in her stool. No joint complaints. No skin findings. The rest of the 10-point review of systems are negative. PHYSICAL EXAMINATION: VITAL SIGNS: Fevers as mentioned, blood pressure 147/87, pulse 107, respiratory rate 16, it was as high as 24, she weighs 59 kg. GENERAL: She is alert. She looks ill, but not toxic. HEAD AND NECK: Extraocular movements are intact. Conjunctivae normal. The oral cavity is clear without thrush. She has a couple lesions on her lips consistent with HSV. Neck is supple. No adenopathy. LUNGS: Clear to auscultation. CARDIAC: Regular rate and rhythm. Normal S1 and S2 without murmur, gallop, or rub. ABDOMEN: Bowel sounds are fairly normal. The abdomen is nondistended, quite soft. No significant tenderness to palpation. GENITOURINARY: Her transplant kidney is unremarkable to palpation. EXTREMITIES: Show no edema. SKIN: Without rash. NEUROLOGIC: Grossly intact. LABORATORY STUDIES: White blood cell count 12.9, 81% neutrophils, 8% bands. Hemoglobin 9.1, platelets 206, lactate 0.7. Procalcitonin 7.07, creatinine 0.99, albumin 3.1, alkaline phosphatase 162, it was 154 last admission. Other liver function tests are normal. The chest x-ray is negative. Microbiology studies as noted. IMPRESSION: Recurrent gram-negative adama sepsis in a renal transplant patient. The history suggest that she never really completely resolved the Escherichia coli sepsis from late July, as she has had weeks now with episodic fevers and chills. The etiology of that Consultation Report [facility] [address] [place]. [address] NAME: DEVON LAWSON : 67 STATUS : ADM IN PAT#: [id number] AGE: 51 ADM/REG DATE : 10/10/16 MR#: [id number] REPORT SERV DATE: 10/11/16 DICTATED BY: GRZEGORZ BRANTLEY DATE: 10/11/16 REPORT STATUS : Draft TRANSCRIBED BY: PAPITO DATE: 10/11/16 episode was never clear either. Her workup including two CT scans was fairly unrevealing and did not show evidence of colitis. Both these scans that were done were without IV contrast. She does have multiple cyst in her left kidney, must consider the possibility of an infected renal cyst or other occult abscess such as a liver abscess that could be missed on a noncontrast study. Certainly must consider the possibility of cholecystitis, although, her exam is unimpressive for that. She does have mild diarrhea for the past couple of days, but I doubt colitis is the etiology of the illness overall. Must consider the possibility of more recent onset Clostridium difficile. I doubt endocarditis. PLAN: 1. We will continue aztreonam, pending final identification sensitivity of the blood culture. 2. Continue Flagyl, pending CT results and C diff results. 3. Send stool for C diff, culture, and fecal leukocytes. 4. Await CT scan this morning. If this is negative, we will discuss doing a followup CT scan with IV contrast with Nephrology. 5. Echocardiogram. ABELINO/PAPITO Grzegorz Brantley M.D. / [id number] CC: Ferny Tapia M.D.
--- NOTE | ~2016-10-10 | DS ---
Discharge Summary [facility] [address] [place]. [address] NAME: DEVON ALBRECHT : 67 STATUS : ADM IN [facility]#: [id number] AGE: 51 ADM/REG DATE : 10/10/16 MR#: [id number] REPORT SERV DATE: 10/15/16 DICTATED BY: QUINN ROBBINS DATE: 10/14/16 REPORT STATUS : Draft TRANSCRIBED BY: MODL DATE: 10/14/16 ADMISSION DATE: 10/10/2016 DISCHARGE DATE: 10/14/2016 INDICATION FOR HOSPITALIZATION: Fever and renal transplant. DISCHARGE DIAGNOSES: 1. Escherichia coli sepsis. 2. Pyelonephritis of renal transplant kidney. 3. Status post donor renal transplant in 04/2014 at [place] with six antigen kidney match. 4. Prior Wilms tumor requiring right nephrectomy and radiation therapy to left kidney as a child. 5. History of obstructive uropathy of the left kidney due to endometriosis. 6. End-stage renal disease, requiring home hemodialysis prior to transplant. 7. Herniated nucleus pulposus. 8. Remote hysterectomy. 9. Type 2 diabetes mellitus. 10.Anemia. 11.Diabetic gastroparesis. 12.Hypertension. 13.Hyperparathyroidism. 14.Hypomagnesemia. 15.Hypophosphatemia. 16.History of colitis with Escherichia coli sepsis in July 2016. 17.Hypercalcemia secondary to hyperparathyroidism. HOSPITAL COURSE: Ms. Albrecht is followed for donor renal transplant, which was performed in April 2014 at [place]. She was transplanted across blood groups as she is a high type A2 recipient receiving a six antigen match kidney. She did receive Rituxan and plasmapheresis prior to transplant and has had no episodes of rejection. She required hospitalization in July 2016 with colitis and E coli sepsis. She was treated with a two- week course of Xifaxan and subsequently, this was repeated. She did report dysuria approximately two weeks earlier and received a weeks round of Keflex. She subsequently has been off antibiotics since 10/03/2016. She presented with three-day history of recurrent fevers, which imprisoned as high as 103 at home associated with nausea. Her admission lab in the emergency room revealed 18 wbc's with bacteria on her UA. A procalcitonin of 7.07, white count of 12.9, and her creatinine was 0.99. Phone contact was made with Dr. Brantley and we discussed antibiotics with a combination of Flagyl, aztreonam, and vancomycin initiated. The patient subsequently underwent CT scan of her abdomen with oral contrast. There was no evidence of colitis. There was stranding of her renal transplant kidney and note of a hyperdense lesion in her [place] left kidney. We will need to follow up with CT scan in approximately six months to assess any change in the left kidney. She was felt to have pyelonephritis involving her transplant kidney. Again, she grew out E coli and her antibiotics were adjusted accordingly to cover the infection Discharge Summary [facility] [address] [place]. [address] NAME: DEVON ALBRECHT : 67 STATUS : ADM IN PAT#: [id number] AGE: 51 ADM/REG DATE : 10/10/16 MR#: [id number] REPORT SERV DATE: 10/15/16 DICTATED BY: QUINN ROBBINS DATE: 10/14/16 REPORT STATUS : Draft TRANSCRIBED BY: PAPITO DATE: 10/14/16 with vancomycin being discontinued, Flagyl being discontinued, and aztreonam was changed to Ancef. She defervesced promptly and was feeling better during her hospitalization. Her admission hemoglobin was noted to be 9.1 and this gradually fell through her hospital course. The hemoglobin was 6.7 upon release. We wanted to avoid transfusion due to her renal transplant dosing with iron and Aranesp were discussed with the patient, although there was some risk to IV iron. It was felt needed with an iron saturation of 8%. Her stool Hemoccults were negative for blood. The anemia will be treated with IV iron, followed by Aranesp as needed. The patient was in agreement to the plan. Outpatient antibiotics were arranged by Infectious Disease with Ancef dosing at 1 g IV q.8 through 11/10/2016. Office arrangements to dose with Venofer 200 mg IV q. Thursday and x4 doses, then reassess for Aranesp were ranged. She was felt stable for release and will follow up with Dr. Guajardo as he schedules. PLAN: 1. Discharge to home. 2. Follow up with home health care for IV antibiotics with Ancef 1 g IV q.8 through 11/10/2016. Follow up with Dr. Guajardo as scheduled. Follow up in the office with IV iron, Venofer 200 mg IV q. Thursday and x4 doses, then assess for Aranesp. Prior to release, the patient to receive IV sodium phosphorus, IV magnesium, and one dose of IV Venofer 200 mg. DISCHARGE MEDICATIONS: Amlodipine 2.5 mg daily; Sensipar 30 mg twice daily; Levsin 0.125 mg before meals and at bedtime; Ancef 1 g IV q.8h. through 11/10/2016 per Home Health Care and Infectious Disease; Lantus insulin 12 units subcutaneously at bedtime; magnesium oxide 400 mg twice daily; CellCept 1 g p.o. twice daily; Protonix 40 mg p.o. twice daily; potassium phosphate 250 mg p.o. twice daily; Zofran 4 mg p.o. three times daily as needed; Tradjenta 5 mg p.o. daily; sodium bicarbonate 650 mg two tablets daily; Flexeril 10 mg, 5 mg p.o. daily p.r.n.; Phenergan 12.5 mg p.o. twice daily p.r.n.; Pravachol 10 mg q.h.s.; Florastor 250 mg twice daily; Prograf 6 mg p.o. twice daily; prednisone 5 mg p.o. daily. ACTIVITY: Activity will be resumed per pre-hospital, but the patient will not return to work until IV antibiotics completed. DIET: 2000-calorie ADA diet. DICTATED BY: Jose Lancaster/PAPITO Quinn Robbins M.D. / [id number] Discharge Summary [address] [address] NAME: DEVON ALBRECHT : 67 STATUS : ADM IN [facility]#: [id number] AGE: 51 ADM/REG DATE : 10/10/16 MR#: [id number] REPORT SERV DATE: 10/15/16 DICTATED BY: QUINN ROBBINS DATE: 10/14/16 REPORT STATUS : Draft TRANSCRIBED BY: BRIANNAL DATE: 10/14/16 CC: Quinn Robbins M.D.
[~2016-10-10 14:19] MED LIST: AMB10 PO; CELLCEPT5 PO; CLINDA150 PO; FIORICET 50-301 EACH PO; FLEX PO; FLEXERIL5 MG PO; FLONASE NAS; FLORASTOR250 MG PO; LANTUS SC; LEVSINTAB SL; MAGOX4 PO; NORV25 PO; P5 PO; PHOSPHA 250 PO; PR12.5 PO; PRAV10 PO; PROGRAF1 PO; PROTONIX PO; SENSIPAR30 M1 PO; SODBICAR10 PO; TRADJENTA5 MG PO; XIFAXAN550 MG PO; ZOFRAN ODT4 MG PO; ZYRTEC ALLGY10 MG PO
[2016-10-10 15:05] LABS: BASOPHILS 0.3 %; BASOPHILS ABSOLUTE 0.04 10/3/uL (0.0-0.16); EOSINOPHILS 0.2 %; EOSINOPHILS ABSOLUTE 0.02 10/3/uL (0.0-0.53); ER CBC TAT 0 Hrs 12 Mins; HEMOGLOBIN 9.1 g/dL (12.0-16.0); IMMATURE GRANULOCYTES 7.3 %; IMMATURE GRANULOCYTES ABSOLUTE 0.94 10/3/uL (0.0-0.11); LYMPHOCYTES 7.6 %; LYMPHOCYTES ABSOLUTE 0.98 10/3/uL (0.67-4.30); MEAN CORPUS HGB CONC 32.7 g/dL (32.0-36.0); MEAN PLATELET VOLUME 10.5 fL (9.2-13.0); MONOCYTES 10.1 %; NEUTROPHILS 74.5 %; NEUTROPHILS ABSOLUTE 9.63 10/3/uL (2.02-8.40); PLATELET COUNT 206 10/3/uL (150-400); RBC DISTRIBUTION WIDTH 14.2 % (12.0-16.0); RED CELL COUNT 3.14 10/6/uL (4.0-5.6); WHITE BLOOD CELLS 12.9 10/3/uL (4.5-10.5)
[2016-10-10 15:07] LABS: INTERNATIONAL NORMAL RATI 1.1 UNITS (-); PARTIAL THROMBO TIME 28.2 SEC (22.5-37.2); PROTIME (NOT ORD) 14.2 SEC (12.0-14.5)
[2016-10-10 15:08] LABS: HEMATOCRIT 27.8 % (36.0-48.0); MANUAL DIFF NO %; MEAN CORPUSCULAR VOLUME 88.5 fL (80-100)
[2016-10-10 15:16] LABS: A/G RATIO 0.8 (0.7-1.9); ALBUMIN 3.1 G/DL (3.5-5.0); ALKALINE PHOSPHATASE 162 U/L (45-117); BUN (BLOOD UREA NITROGEN) 13 MG/DL (6-23); CALCIUM, SERUM 10.5 MG/DL (8.5-10.4); CHLORIDE, SERUM 107 MMOL/L (96-112); CO2 (CARBON DIOXIDE) 21 MMOL/L (24-34); CREATININE 0.99 MG/DL (0.55-1.02); GFR AFRICAN AMERICAN 77 ML/MIN (>=60); GFR NON AFRICAN AMERICAN 66 ML/MIN (>=60); GLOBULIN 3.8 G/DL (2.5-4.1); GLUCOSE, SERUM 154 MG/DL (60-99); POTASSIUM, SERUM 4.3 MMOL/L (3.5-5.3); SGOT(AST) 23 U/L (5-40); SGPT(ALT) 33 U/L (5-65); SODIUM, SERUM 138 MMOL/L (135-148); TOTAL BILIRUBIN 0.6 MG/DL (0-1.2); TOTAL PROTEIN 6.9 G/DL (6.0-8.5)
[2016-10-10 15:17] LABS: LACTATE 0.7 MMOL/L (0.3-2.4)
[2016-10-10 15:24] LABS: BAND NEUTROPHILS 8 %; ER DIFF TAT 0 Hrs 31 Mins; LYMPHOCYTES 3 %; LYMPHOCYTES ABSOLUTE (CALC) 0.39 10/3/uL (0.67-4.30); MONOCYTES 8 %; MONOCYTES ABSOLUTE (CALC) 1.03 10/3/uL (0.21-1.20); NEUTROPHILS ABSOLUTE (CALC) 11.48 10/3/uL (2.02-8.40); SEGMENTED NEUTROPHIL (0) 81 %; TOTAL NUCLEATED CELLS 100
[2016-10-10 15:25] LABS: PLATELET ESTIMATE ADQ (ADEQUATE); POIKILOCYTOSIS 1+ (5-10/OIF) (0-5/OIF)
[2016-10-10 16:24] LABS: ASCORBIC ACID (UR NOT ORDER) NEG (NEG); BILIRUBIN, URINE NEGATIVE (NEG); ER URINALYSIS TAT 0 Hrs 15 Mins; KETONE, URINE 20 MG/DL (NEG); LEUKOCYTE ESTERASE(NOT OR SMALL (NEG); NITRITE (URINE) NEG (NEG); WBC (NOT ORDERED) (RFLEX) 18 (0-5)
[2016-10-10 18:38] LABS: PROCALCITONIN 7.07 ng/mL (<0.5)
[2016-10-10] MEDS ORDERED: PHOSPHA 250 PO (18:45)
[2016-10-11 10:57] LABS: HEMOGLOBIN 7.6 g/dL (12.0-16.0); MEAN CORPUS HGB CONC 33.2 g/dL (32.0-36.0); MEAN CORPUSCULAR HEMOGLOB 29.6 pg (26.0-34.0); MEAN CORPUSCULAR VOLUME 89.1 fL (80-100); MEAN PLATELET VOLUME 10.5 fL (9.2-13.0); PLATELET COUNT 152 10/3/uL (150-400); RBC DISTRIBUTION WIDTH 14.2 % (12.0-16.0); RED CELL COUNT 2.57 10/6/uL (4.0-5.6); WHITE BLOOD CELLS 9.9 10/3/uL (4.5-10.5)
[2016-10-11 11:01] LABS: HEMATOCRIT 22.9 % (36.0-48.0); MANUAL DIFF YES %
[2016-10-11 11:16] LABS: ALBUMIN 2.4 G/DL (3.5-5.0); BUN (BLOOD UREA NITROGEN) 13 MG/DL (6-23); CALCIUM, SERUM 9.9 MG/DL (8.5-10.4); CHLORIDE, SERUM 108 MMOL/L (96-112); CO2 (CARBON DIOXIDE) 18 MMOL/L (24-34); CREATININE 0.87 MG/DL (0.55-1.02); GFR AFRICAN AMERICAN 90 ML/MIN (>=60); GFR NON AFRICAN AMERICAN 78 ML/MIN (>=60); GLUCOSE, SERUM 116 MG/DL (60-99); PHOSPHORUS, SERUM 1.6 MG/DL (2.5-4.5); POTASSIUM, SERUM 3.7 MMOL/L (3.5-5.3); SODIUM, SERUM 137 MMOL/L (135-148)
[2016-10-11 11:29] LABS: BAND NEUTROPHILS 13 %; LYMPHOCYTES 9 %; LYMPHOCYTES ABSOLUTE (CALC) 0.89 10/3/uL (0.67-4.30); MONOCYTES 6 %; MONOCYTES ABSOLUTE (CALC) 0.59 10/3/uL (0.21-1.20); NEUTROPHILS ABSOLUTE (CALC) 8.42 10/3/uL (2.02-8.40); OVALOCYTES 1+ (3-10/OIF) (0-2/OIF); PLATELET ESTIMATE ADQ (ADEQUATE); SEGMENTED NEUTROPHIL (0) 72 %; TOTAL NUCLEATED CELLS 100
[2016-10-11 12:26] LABS: PROCALCITONIN 10.46 ng/mL (<0.5)
[2016-10-11 12:42] LABS: HEMOGLOBIN 7.6 g/dL (12.0-16.0); MEAN CORPUSCULAR HEMOGLOB 29.2 pg (26.0-34.0); MEAN CORPUSCULAR VOLUME 88.5 fL (80-100); MEAN PLATELET VOLUME 10.7 fL (9.2-13.0); PLATELET COUNT 144 10/3/uL (150-400); RBC DISTRIBUTION WIDTH 14.2 % (12.0-16.0); WHITE BLOOD CELLS 8.8 10/3/uL (4.5-10.5)
[2016-10-11 12:43] LABS: MANUAL DIFF YES %
[2016-10-11 13:59] LABS: BAND NEUTROPHILS 17 %; LYMPHOCYTES 5 %; LYMPHOCYTES ABSOLUTE (CALC) 0.44 10/3/uL (0.67-4.30); MONOCYTES 8 %; NEUTROPHILS ABSOLUTE (CALC) 7.66 10/3/uL (2.02-8.40); SEGMENTED NEUTROPHIL (0) 70 %; TOTAL NUCLEATED CELLS 100
[2016-10-11 14:11] LABS: PLATELET ESTIMATE SLT DEC (ADEQUATE)
[2016-10-11 14:13] LABS: OVALOCYTES 1+ (3-10/OIF) (0-2/OIF); TEARDROP SHAPED RBCS FEW (3-10/OIF)
[2016-10-12 05:41] LABS: HEMATOCRIT 21.8 % (36.0-48.0); HEMOGLOBIN 7.2 g/dL (12.0-16.0); MEAN CORPUSCULAR VOLUME 87.9 fL (80-100); MEAN PLATELET VOLUME 10.4 fL (9.2-13.0); PLATELET COUNT 147 10/3/uL (150-400); RBC DISTRIBUTION WIDTH 14.1 % (12.0-16.0); RED CELL COUNT 2.48 10/6/uL (4.0-5.6); WHITE BLOOD CELLS 6.8 10/3/uL (4.5-10.5)
[2016-10-12 05:44] LABS: MANUAL DIFF YES %
[2016-10-12 05:56] LABS: ALBUMIN 2.2 G/DL (3.5-5.0); BUN (BLOOD UREA NITROGEN) 13 MG/DL (6-23); CHLORIDE, SERUM 111 MMOL/L (96-112); CO2 (CARBON DIOXIDE) 21 MMOL/L (24-34); CREATININE 0.82 MG/DL (0.55-1.02); GFR AFRICAN AMERICAN 97 ML/MIN (>=60); GFR NON AFRICAN AMERICAN 83 ML/MIN (>=60); GLUCOSE, SERUM 102 MG/DL (60-99); POTASSIUM, SERUM 3.6 MMOL/L (3.5-5.3); SGOT(AST) 12 U/L (5-40); SGPT(ALT) 17 U/L (5-65); SODIUM, SERUM 139 MMOL/L (135-148); TOTAL BILIRUBIN 0.3 MG/DL (0-1.2)
[2016-10-12 06:02] LABS: A/G RATIO 0.7 (0.7-1.9); ALKALINE PHOSPHATASE 123 U/L (45-117); GLOBULIN 3.2 G/DL (2.5-4.1); TOTAL PROTEIN 5.4 G/DL (6.0-8.5)
[2016-10-12 06:21] LABS: BAND NEUTROPHILS 12 %; BURR CELLS 1+ (3-10/OIF) (0-2/OIF); EOSINOPHILS 2 %; EOSINOPHILS ABSOLUTE (CALC) 0.14 10/3/uL (0.0-0.53); IMMATURE GRANS ABSOLUTE (CALC) 0.07 10/3/uL (0.0-0.11); LYMPHOCYTES 8 %; LYMPHOCYTES ABSOLUTE (CALC) 0.54 10/3/uL (0.67-4.30); METAMYELOCYTES 1 %; MONOCYTES 7 %; MONOCYTES ABSOLUTE (CALC) 0.48 10/3/uL (0.21-1.20); NEUTROPHILS ABSOLUTE (CALC) 5.58 10/3/uL (2.02-8.40); PLATELET ESTIMATE SLT DEC (ADEQUATE); SEGMENTED NEUTROPHIL (0) 70 %; TOTAL NUCLEATED CELLS 100; VACUOLATED NEUTROPHILES OCC
[2016-10-12 06:22] LABS: TEARDROP SHAPED RBCS OCC (0-2/OIF)
[2016-10-12 09:35] LABS: PHOSPHORUS, SERUM 1.6 MG/DL (2.5-4.5)
[2016-10-12 09:38] LABS: FOLATE 23.6 NG/ML (>5.2)
[2016-10-13 06:16] LABS: BASOPHILS 0.6 %; BASOPHILS ABSOLUTE 0.03 10/3/uL (0.0-0.16); EOSINOPHILS 1.7 %; EOSINOPHILS ABSOLUTE 0.09 10/3/uL (0.0-0.53); HEMATOCRIT 20.5 % (36.0-48.0); HEMOGLOBIN 6.9 g/dL (12.0-16.0); IMMATURE GRANULOCYTES 4.5 %; IMMATURE GRANULOCYTES ABSOLUTE 0.24 10/3/uL (0.0-0.11); LYMPHOCYTES 17.4 %; LYMPHOCYTES ABSOLUTE 0.94 10/3/uL (0.67-4.30); MEAN CORPUS HGB CONC 33.7 g/dL (32.0-36.0); MEAN CORPUSCULAR HEMOGLOB 29.2 pg (26.0-34.0); MEAN CORPUSCULAR VOLUME 86.9 fL (80-100); MONOCYTES 11.7 %; MONOCYTES ABSOLUTE 0.63 10/3/uL (0.21-1.20); NEUTROPHILS 64.1 %; NEUTROPHILS ABSOLUTE 3.46 10/3/uL (2.02-8.40); PLATELET COUNT 155 10/3/uL (150-400); RBC DISTRIBUTION WIDTH 14.3 % (12.0-16.0); RED CELL COUNT 2.36 10/6/uL (4.0-5.6); WHITE BLOOD CELLS 5.4 10/3/uL (4.5-10.5)
[2016-10-13 06:18] LABS: MANUAL DIFF NO %
[2016-10-13 06:37] LABS: ALBUMIN 2.2 G/DL (3.5-5.0); BUN (BLOOD UREA NITROGEN) 12 MG/DL (6-23); CHLORIDE, SERUM 112 MMOL/L (96-112); CO2 (CARBON DIOXIDE) 22 MMOL/L (24-34); GFR AFRICAN AMERICAN 117 ML/MIN (>=60); GFR NON AFRICAN AMERICAN 101 ML/MIN (>=60); GLUCOSE, SERUM 98 MG/DL (60-99); PHOSPHORUS, SERUM 1.7 MG/DL (2.5-4.5); POTASSIUM, SERUM 3.6 MMOL/L (3.5-5.3); SODIUM, SERUM 143 MMOL/L (135-148)
[2016-10-13 16:10] LABS: % IRON SAT 15 % (20-50); FERRITIN 396 NG/ML (8-252); FOLATE 17.2 NG/ML (>5.2); IRON BINDING CAPACITY 144 MCG/DL (225-410); IRON, SERUM 21 MCG/DL (35-150)
[2016-10-14 05:25] LABS: BASOPHILS 0.2 %; BASOPHILS ABSOLUTE 0.01 10/3/uL (0.0-0.16); EOSINOPHILS 2.5 %; EOSINOPHILS ABSOLUTE 0.12 10/3/uL (0.0-0.53); IMMATURE GRANULOCYTES 3.5 %; IMMATURE GRANULOCYTES ABSOLUTE 0.17 10/3/uL (0.0-0.11); LYMPHOCYTES 17.6 %; LYMPHOCYTES ABSOLUTE 0.85 10/3/uL (0.67-4.30); MEAN CORPUS HGB CONC 32.8 g/dL (32.0-36.0); MEAN CORPUSCULAR HEMOGLOB 28.5 pg (26.0-34.0); MEAN CORPUSCULAR VOLUME 86.8 fL (80-100); MEAN PLATELET VOLUME 10.4 fL (9.2-13.0); MONOCYTES 15.8 %; MONOCYTES ABSOLUTE 0.76 10/3/uL (0.21-1.20); NEUTROPHILS 60.4 %; NEUTROPHILS ABSOLUTE 2.91 10/3/uL (2.02-8.40); PLATELET COUNT 181 10/3/uL (150-400); RBC DISTRIBUTION WIDTH 14.3 % (12.0-16.0); RED CELL COUNT 2.35 10/6/uL (4.0-5.6); WHITE BLOOD CELLS 4.8 10/3/uL (4.5-10.5)
[2016-10-14 05:26] LABS: HEMATOCRIT 20.4 % (36.0-48.0); HEMOGLOBIN 6.7 g/dL (12.0-16.0); MANUAL DIFF NO %
[2016-10-14 05:47] LABS: ALBUMIN 2.1 G/DL (3.5-5.0); BUN (BLOOD UREA NITROGEN) 9 MG/DL (6-23); CALCIUM, SERUM 9.6 MG/DL (8.5-10.4); CHLORIDE, SERUM 115 MMOL/L (96-112); CO2 (CARBON DIOXIDE) 22 MMOL/L (24-34); CREATININE 0.57 MG/DL (0.55-1.02); GFR AFRICAN AMERICAN 125 ML/MIN (>=60); GFR NON AFRICAN AMERICAN 108 ML/MIN (>=60); GLUCOSE, SERUM 99 MG/DL (60-99); PHOSPHORUS, SERUM 1.5 MG/DL (2.5-4.5); SODIUM, SERUM 145 MMOL/L (135-148)
[2016-10-14 11:41] LABS: FERRITIN 283 NG/ML (8-252)
[2016-10-15] MEDS ORDERED: CEFAZ1 IV (11:46)
[2016-10-24] MEDS ORDERED: NORV25 PO (02:08)
[2016-10-24] MEDS ORDERED: LEVSINTAB PO/SL (02:09)
[2016-10-24] MEDS ORDERED: TRADJENTA5 MG PO (02:09)
[2016-10-24] MEDS ORDERED: FLORASTOR250 MG PO (02:09)
[2016-10-24] MEDS ORDERED: PHOSPHA 250 PO (02:10)
[2016-10-24] MEDS ORDERED: FIORICET 50-301 EACH PO (02:10)
[2016-10-24] MEDS ORDERED: FLEX PO (02:11)
[2016-10-24] MEDS ORDERED: PR12.5 PO (02:12)
[2016-10-24] MEDS ORDERED: SODBICAR10 PO (02:12)
[2016-10-24] MEDS ORDERED: PRAV10 PO (02:13)
[2016-10-24] MEDS ORDERED: CELLCEPT5 PO (02:13)
[2016-10-24] MEDS ORDERED: P5 PO (02:13)
[2016-10-24] MEDS ORDERED: SENSIPAR30 M1 PO (02:14)
[2016-10-24] MEDS ORDERED: PROGRAF1 PO (02:15)
[2016-10-24] MEDS ORDERED: AMB10 PO (02:15)
[2016-10-24] MEDS ORDERED: LANTUSCART SC (02:16)
[2016-10-24] MEDS ORDERED: FLONASE NAS (02:17)
[2016-10-24] MEDS ORDERED: ZYRTEC ALLGY10 MG PO (02:17)
[2016-10-24] MEDS ORDERED: NOVOPEN SC (02:17)
[2016-10-24] MEDS ORDERED: MAGOX4 PO (02:20)
[2016-10-24] MEDS ORDERED: CEFAZ1 IV (02:20)
[2016-10-24] MEDS ORDERED: PROTONIX PO (02:21)
[2016-10-30] MEDS ORDERED: OXYCOD PO (12:18)
[2016-10-30] MEDS ORDERED: PROGRAF5 PO (12:20)
[2016-10-30] MEDS ORDERED: ELIQUIS 5 MG TAB5 MG PO (12:24)
== END 2016-10-15 16:05 | disposition home health service (06) | DRG 872 ==
LOC: ER 14:19 → 5SO 18:25
PROVIDERS: Hospitalist; Internal Medicine Infectious Disease; Internal Medicine Nephrology; Nurse Practitioner
PROC: 02HV33Z Insertion of Infusion Device into Superior Vena Cava, Percutaneous Approach (ICD-10-PCS; principal; 2016-10-11)
PROC: 4A02X4A Measurement of Cardiac Electrical Activity, Guidance, External Approach (ICD-10-PCS; 2016-10-11)
DX: A41.51 Sepsis due to Escherichia coli [E. coli] (principal); K31.84 Gastroparesis; Z94.0 Kidney transplant status; E11.43 Type 2 diabetes mellitus with diabetic autonomic (poly)neuropathy; E83.42 Hypomagnesemia; E83.39 Other disorders of phosphorus metabolism; N10 Acute pyelonephritis; N39.0 Urinary tract infection, site not specified; I10 Essential (primary) hypertension; E11.9 Type 2 diabetes mellitus without complications; D64.9 Anemia, unspecified; Z90.710 Acquired absence of both cervix and uterus; E21.3 Hyperparathyroidism, unspecified; Z98.890 Other specified postprocedural states; Z79.899 Other long term (current) drug therapy; Z80.7 Family history of other malignant neoplasms of lymphoid, hematopoietic and related tissues; Z84.1 Family history of disorders of kidney and ureter; Z82.49 Family history of ischemic heart disease and other diseases of the circulatory system; Z79.4 Long term (current) use of insulin; Z79.52 Long term (current) use of systemic steroids; Z88.1 Allergy status to other antibiotic agents; Z88.5 Allergy status to narcotic agent; Z88.8 Allergy status to other drugs, medicaments and biological substances
CPT/HCPCS: 36569; 71020; 71250; 74176; 80053; 80069; 80197; 80202; 81001; 82272; 82607; 82728; 82746; 82962; 83540; 83550; 83605; 83690; 83735; 84100; 84145; 85025; 85610; 85730; 87040; 87045; 87046; 87046-59; 87077; 87086; 87150; 87186; 87493; 87493-59; 87899; 87899-59; 89055; 93005; 93306; 96374; 99285; A9270-GY; C1751; J0690; J0885; J2405; J2550; J2916; J3370; J3475; J7507